=== PATIENT | male | born 1965 | race Caucasian/White ===

== ENCOUNTER 2016-07-27 17:04 | Observation (INO) | payer BC ==
[~2016-07-27] VITALS: Ht 193 cm; Wt 137.0 kg
[~2016-07-27 17:04] MED LIST: CELE100 PO; JANU50TA9 PO; MELO15; PRED20 PO
[2016-07-27] MEDS ORDERED: JANU50TA8 PO (17:21)
[2016-07-27] MEDS ORDERED: MELO7.5T4 PO (17:21)
[2016-07-27] MEDS ORDERED: PRAV40TA2 PO (17:21)
[2016-07-27] MEDS ORDERED: VITA500T49 PO (17:25)
[2016-07-27] MEDS ORDERED: NITROGLYCERIN 0.4 MG SL 25 TABS/BTL SL ONE (17:25)
[2016-07-27] MEDS ORDERED: LORA-361 PO (17:25)
[2016-07-27] MEDS: NITROGLYCERIN 0.4 MG SL 25 TABS/BTL SL SCH ×2 (17:27→17:40)
[2016-07-27] MEDS ORDERED: SODIUM CHLORIDE 0.9% FLUSH 5 ML FLUSH IVF PRN ×2 (17:30→20:30)
[2016-07-27] MEDS ORDERED: SODIUM CHLORID 0.9% 500 ML INJ 500 ML IV ONE (17:30)
[2016-07-27] MEDS ORDERED: ASPIRIN 81 MG CHEW TAB PO ONE (17:30)
[2016-07-27 18:02] LABS: AUTOMATED NEUTROPHIL # 5.1 TH/MM3 (1.8-7.7); BASOPHIL # 0.1 TH/MM3 (0-0.2); BASOPHIL % 1.1 % (0.0-2.0); EOSINOPHIL # 0.1 TH/MM3 (0-0.4); EOSINOPHIL % 1.6 % (0.0-4.0); HEMATOCRIT 46.8 % (39.0-51.0); HEMO FLAGS DIFF FINAL; LYMPH % 20.1 % (9.0-44.0); LYMPHOCYTE # 1.6 TH/MM3 (1.0-4.8); MEAN CELL VOLUME 95.7 FL (80.0-100.0); MEAN CORPUSCULAR HEMOGLOBIN 32.6 PG (27.0-34.0); MEAN CORPUSCULAR HGB CONC 34.1 % (32.0-36.0); MONO % 13.9 % (0.0-8.0); NEUT % 63.3 % (16.0-70.0); PLATELET COUNT 310 TH/MM3 (150-450); RED BLOOD COUNT 4.89 MIL/MM3 (4.50-5.90); RED CELL DISTRIBUTION WIDTH 13.3 % (11.6-17.2)
--- NOTE | 2016-07-27 18:04 | RADRPT ---
EXAM DATE/TIME: 07/27/2016 17:28 [facility] COMPARISON: No previous studies available for comparison. INDICATIONS : Shortness of breath and chest pain. MEDICAL HISTORY : None. SURGICAL HISTORY : None. ENCOUNTER: Initial ACUITY: 1 day PAIN SCORE: 6/10 LOCATION: Bilateral chest FINDINGS: No infiltrate, effusion or pneumothorax demonstrated. Basilar interstitium slightly prominent. There is mild cardiomegaly. CONCLUSION: Trace failure possible. No confluent consolidation. Raulito Lopez MD on July 27, 2016 at 18:02 Board Certified Radiologist. This report was verified electronically.
[2016-07-27 18:12] LABS: APTT (PATIENT) 25.5 SEC (24.3-30.1); PROTHROMBIN TIME - PATIENT 10.9 SEC (9.8-11.6)
[2016-07-27 18:17] VITALS: BP 149/90; PULSE 86; RESP 22; TEMP 97.8; O2SAT 97
[2016-07-27 18:21] VITALS: O2SAT 97
[2016-07-27 18:26] VITALS: BP 106/59; PULSE 87; RESP 18; O2SAT 95
[2016-07-27 18:54] LABS: ALT (GPT) 52 U/L (12-78); ANION GAP 14 MEQ/L (5-15); AST (GOT) 29 U/L (15-37); BICARBONATE 23.1 MEQ/L (21.0-32.0); BLOOD UREA NITROGEN 12 MG/DL (7-18); CHLORIDE 101 MEQ/L (98-107); GLOMERULAR FILTRATION RATE 80 ML/MIN (>89); MAGNESIUM 1.7 MG/DL (1.5-2.5); SODIUM (NA) 138 MEQ/L (136-145)
[2016-07-27 18:58] LABS: ALKALINE PHOSPHATASE 67 U/L (45-117); CREATINE KINASE 145 U/L (39-308); TOTAL BILIRUBIN ADULT 0.8 MG/DL (0.2-1.0)
[2016-07-27 19:11] LABS: CKMB 1.9 NG/ML (0.5-3.6)
--- NOTE | 2016-07-27 19:14 | PD ---
HPI Chief Complaint: Chest Pain Time Seen by Provider: 17:22 Travel History International Travel<30 days: No Contact w/Intl Traveler<30days: No Traveled to known affect area: No History of Present Illness HPI Patient is a 50 -year-old male with history of diabetes, hyperlipidemia, hypertension who presents to the emergency room with complaints of chest pain. Patient reports that he has been having increased pressure to his chest for the past few days. Patient reports that he thought that his symptoms were secondary to allergies and he did take allergy pills with no relief of symptoms. Patient reports that today, he had increased pain to his substernal, reports that he has been feeling short of breath and has been feeling diaphoretic, that he felt some tingling in his left arm and jaw, reports concerns that his symptoms may be cardiac in nature and not allergic in nature so patient came to the emergency room for evaluation. Patient with no history of coronary artery disease in the past, denies history of OR in the past. PFSH Past Medical History Cardiovascular Problems: Yes High Cholesterol: Yes Diabetes: Yes Patient Takes Glucophage: No Diminished Hearing: No Hypertension: Yes Kidney Stones: Yes (5 YEARS AGO WITH REMOVAL OF STONES ) Musculoskeletal: Yes (SCIATICA) Respiratory: Yes (SLEEP APNEA) Sleep Apnea: Yes Tetanus Vaccination: Unknown Social History Alcohol Use: Yes (BEER, OCCAS. A COUPLE TIMES A WEEK) Tobacco Use: No Substance Use: No Allergies-Medications (Allergen,Severity, Reaction): Coded Allergies: Tamiflu (Verified Allergy, Severe, 07/27/16) Reported Meds & Prescriptions Reported Meds & Active Scripts Active Reported Vitamin B12 (Cyanocobalamin) 500 Mcg Tab 500 Mcg PO DAILY Claritin (Loratadine) 10 Mg Tab 10 Mg PO DAILY Janumet (Sitagliptin-Metformin) 50-1,000 Mg Tab 1 Tab PO BID Pravastatin 40 Mg Tab 40 Mg PO DAILY Meloxicam 7.5 Mg Tab 7.5 Mg PO DAILY Review of Systems General / Constitutional: No: Fever Eyes: No: Visual changes HENT: No: Headaches Cardiovascular: Positive: Chest Pain or Discomfort, Diaphoresis Respiratory: Positive: Shortness of Breath Gastrointestinal: Positive: Nausea, Vomiting, No: Abdominal Pain Genitourinary: No: Dysuria Musculoskeletal: No: Pain Skin: No Rash Neurologic: No: Weakness Psychiatric: No: Depression Endocrine: No: Polydipsia Hematologic/Lymphatic: No: Easy Bruising Physical Exam Narrative GENERAL: Moderate distress SKIN: Warm and dry. HEAD: Atraumatic. Normocephalic. EYES: Pupils equal and round. No scleral icterus. No injection or drainage. ENT: No nasal bleeding or discharge. Mucous membranes pink and moist. NECK: Trachea midline. No JVD. CARDIOVASCULAR: Regular rate and rhythm. No murmur appreciated. Patient diaphoretic on exam RESPIRATORY: No accessory muscle use. Clear to auscultation. Breath sounds equal bilaterally. GASTROINTESTINAL: Abdomen soft, non-tender, nondistended. Hepatic and splenic margins not palpable. MUSCULOSKELETAL: No obvious deformities. No clubbing. No cyanosis. No edema. NEUROLOGICAL: Awake and alert. No obvious cranial nerve deficits. Motor grossly within normal limits. Normal speech. PSYCHIATRIC: Appropriate mood and affect; insight and judgment normal. Data Data Last Documented VS Vital Signs Date Time Temp Pulse Resp B/P Pulse Ox O2 Delivery O2 Flow Rate FiO2 07/27/16 18:26 87 18 106/59 95 Room Air 07/27/16 18:17 97.8 Orders B-Type Natriuretic Peptide (07/27/16 17:22) Ckmb (Isoenzyme) Profile (07/27/16 17:22) Complete Blood Count With Diff (07/27/16 17:22) Comprehensive Metabolic Panel (07/27/16 17:22) Magnesium (Mg) (07/27/16 17:22) Prothrombin Time / Inr (Pt) (07/27/16 17:22) Act Partial Throm Time (Ptt) (07/27/16 17:22) Troponin I (07/27/16 17:22) Lipase (07/27/16 17:22) Chest, Single Ap (07/27/16 17:22) Ecg Monitoring (07/27/16 17:22) Iv Access Insert/Monitor (07/27/16 17:22) Oximetry (07/27/16 17:22) Aspirin Chew (Aspirin Chew) (07/27/16 17:30) Sodium Chloride 0.9% Flush (Ns Flush) (07/27/16 17:30) Nitroglycerin Sl (Nitrostat Sl) (07/27/16 17:30) Sodium Chlorid 0.9% 500 Ml Inj (Ns 500 M (07/27/16 17:30) Nitroglycerin Sl (Nitrostat Sl) (07/27/16 17:25) Electrocardiogram (07/27/16 17:10) CKMB (07/27/16 17:37) CKMB% (07/27/16 17:37) Labs Laboratory Tests Test 07/27/16 17:37 White Blood Count 8.0 TH/MM3 Red Blood Count 4.89 MIL/MM3 Hemoglobin 16.0 GM/DL Hematocrit 46.8 % Mean Corpuscular Volume 95.7 FL Mean Corpuscular Hemoglobin 32.6 PG Mean Corpuscular Hemoglobin 34.1 % Concent Red Cell Distribution Width 13.3 % Platelet Count 310 TH/MM3 Mean Platelet Volume 7.7 FL Neutrophils (%) (Auto) 63.3 % Lymphocytes (%) (Auto) 20.1 % Monocytes (%) (Auto) 13.9 % Eosinophils (%) (Auto) 1.6 % Basophils (%) (Auto) 1.1 % Neutrophils # (Auto) 5.1 TH/MM3 Lymphocytes # (Auto) 1.6 TH/MM3 Monocytes # (Auto) 1.1 TH/MM3 Eosinophils # (Auto) 0.1 TH/MM3 Basophils # (Auto) 0.1 TH/MM3 CBC Comment DIFF FINAL Differential Comment Prothrombin Time 10.9 SEC Prothromb Time International 1.0 RATIO Ratio Activated Partial 25.5 SEC Thromboplast Time Sodium Level 138 MEQ/L Potassium Level 4.0 MEQ/L Chloride Level 101 MEQ/L Carbon Dioxide Level 23.1 MEQ/L Anion Gap 14 MEQ/L Blood Urea Nitrogen 12 MG/DL Creatinine 0.98 MG/DL Estimat Glomerular Filtration 80 ML/MIN Rate Random Glucose 180 MG/DL Calcium Level 9.5 MG/DL Magnesium Level 1.7 MG/DL Total Bilirubin 0.8 MG/DL Aspartate Amino Transf 29 U/L (AST/SGOT) Alanine Aminotransferase 52 U/L (ALT/SGPT) Alkaline Phosphatase 67 U/L Total Creatine Kinase 145 U/L Troponin I 0.04 NG/ML B-Type Natriuretic Peptide 318 PG/ML Total Protein 7.8 GM/DL Albumin 4.3 GM/DL Lipase 203 U/L MDM Medical Decision Making Medical Screen Exam Complete: Yes Emergency Medical Condition: Yes Interpretation(s) EKG #1 at 1644 normal sinus rhythm at 82 beats for minute, QT/QTc 409/447, no acute ST-T wave changes EKG #2 at 1710: Normal sinus rhythm at 90 bpm, QT/QTc 361/409, no acute ST or T- wave changes, PVCs Vital Signs Date Time Temp Pulse Resp B/P Pulse Ox O2 Delivery O2 Flow Rate FiO2 07/27/16 18:26 87 18 106/59 95 Room Air 07/27/16 18:21 97 Room Air 07/27/16 18:17 97.8 86 22 149/90 97 Laboratory Tests Test 07/27/16 17:37 White Blood Count 8.0 TH/MM3 (4.0-11.0) Red Blood Count 4.89 MIL/MM3 (4.50-5.90) Hemoglobin 16.0 GM/DL (13.0-17.0) Hematocrit 46.8 % (39.0-51.0) Mean Corpuscular Volume 95.7 FL (80.0-100.0) Mean Corpuscular Hemoglobin 32.6 PG (27.0-34.0) Mean Corpuscular Hemoglobin 34.1 % Concent (32.0-36.0) Red Cell Distribution Width 13.3 % (11.6-17.2) Platelet Count 310 TH/MM3 (150-450) Mean Platelet Volume 7.7 FL (7.0-11.0) Neutrophils (%) (Auto) 63.3 % (16.0-70.0) Lymphocytes (%) (Auto) 20.1 % (9.0-44.0) Monocytes (%) (Auto) 13.9 % (0.0-8.0) Eosinophils (%) (Auto) 1.6 % (0.0-4.0) Basophils (%) (Auto) 1.1 % (0.0-2.0) Neutrophils # (Auto) 5.1 TH/MM3 (1.8-7.7) Lymphocytes # (Auto) 1.6 TH/MM3 (1.0-4.8) Monocytes # (Auto) 1.1 TH/MM3 (0-0.9) Eosinophils # (Auto) 0.1 TH/MM3 (0-0.4) Basophils # (Auto) 0.1 TH/MM3 (0-0.2) CBC Comment DIFF FINAL Differential Comment Prothrombin Time 10.9 SEC (9.8-11.6) Prothromb Time International 1.0 RATIO Ratio Activated Partial 25.5 SEC Thromboplast Time (24.3-30.1) Sodium Level 138 MEQ/L (136-145) Potassium Level 4.0 MEQ/L (3.5-5.1) Chloride Level 101 MEQ/L (98-107) Carbon Dioxide Level 23.1 MEQ/L (21.0-32.0) Anion Gap 14 MEQ/L (5-15) Blood Urea Nitrogen 12 MG/DL (7-18) Creatinine 0.98 MG/DL (0.60-1.30) Estimat Glomerular Filtration 80 ML/MIN (>89) Rate Random Glucose 180 MG/DL (74-106) Calcium Level 9.5 MG/DL (8.5-10.1) Magnesium Level 1.7 MG/DL (1.5-2.5) Total Bilirubin 0.8 MG/DL (0.2-1.0) Aspartate Amino Transf 29 U/L (15-37) (AST/SGOT) Alanine Aminotransferase 52 U/L (12-78) (ALT/SGPT) Alkaline Phosphatase 67 U/L (45-117) Total Creatine Kinase 145 U/L (39-308) Troponin I 0.04 NG/ML (0.02-0.05) B-Type Natriuretic Peptide 318 PG/ML (0-100) Total Protein 7.8 GM/DL (6.4-8.2) Albumin 4.3 GM/DL (3.4-5.0) Lipase 203 U/L (73-393) Last Impressions Chest X-Ray 07/27/16 1722 Signed Impressions: Service Date/Time: Wednesday, July 27, 2016 17:28 - CONCLUSION: Trace failure possible. No confluent consolidation. Raulito Lopez MD Differential Diagnosis ACS, arrhythmia, electrolyte abnormality, PE, pneumothorax Narrative Course Patient is a 50-year-old male who presents to emergency room with complaints of chest pain. Patient reports that chest pain has been intermittent for the past few days, reports that chest pain has been constant since this morning. Patient reports that chest pain is substernal in nature, reports that he feels like a "pressure to my chest" associated nausea, vomiting and diaphoresis. Patient reports that he was concerned today as symptoms were now going to his jaw and he felt increasingly to his left arm. Patient was having chest pain and was diaphoretic upon arrival to emergency room. EKG obtained, patient was placed on a track fitter. Patient was given one sublingual nitroglycerin and had complete resolution of his chest pain. Labs as well as cardiac enzymes ordered. Troponin is 0.04, BNP 318 Plan to admit patient to chest pain observation unit for serial troponins and for cardiac monitoring. Patient agreeable to plan of care Diagnosis Primary Impression: Chest pain Qualified Code: R07.9 - Chest pain, unspecified type Admitting Information Admitting Physician Requests: Leonila Avila DO Jul 27, 2016 19:14
[2016-07-27 19:52] VITALS: BP 118/62; PULSE 84; RESP 14; O2SAT 97
[2016-07-27] MEDS: D5-1/2 NS + KCL 20 MEQ INJ 1,000 ML IV SCH (20:57)
[2016-07-27] MEDS ORDERED: SODIUM CHLORIDE 0.9% FLUSH 5 ML FLUSH IVF SCH (21:00)
[2016-07-27 21:51] LABS: CREATINE KINASE 138 U/L (39-308)
[2016-07-27 22:00] VITALS: BP 136/68; PULSE 82; RESP 16; O2SAT 100
[2016-07-27 22:04] LABS: CKMB 1.4 NG/ML (0.5-3.6)
[2016-07-28 00:36] LABS: CREATINE KINASE 110 U/L (39-308)
[2016-07-28 00:49] LABS: CKMB 1.6 NG/ML (0.5-3.6)
[2016-07-28 01:57] VITALS: BP 144/77; PULSE 78; RESP 12; O2SAT 98
[2016-07-28 03:55] VITALS: BP 138/70; PULSE 66; RESP 12; O2SAT 99
[2016-07-28 06:16] VITALS: BP 134/78; PULSE 68; RESP 18; O2SAT 100
[2016-07-28] MEDS: NITROGLYCERIN 0.4 MG SL 25 TABS/BTL SL SCH (07:00)
[2016-07-28] MEDS: D5-1/2 NS + KCL 20 MEQ INJ 1,000 ML IV SCH (07:15)
[2016-07-28 07:19] VITALS: BP_SYST 141; BP_SYST 142; BP_DIAS 81; BP_DIAS 82; PULSE 78; RESP 17; TEMP 97; TEMP 97.8; O2SAT 98; O2SAT 99
[2016-07-28] MEDS ORDERED: NITROGLYCERIN 0.4 MG SL 25 TABS/BTL SL PRN (09:00)
[2016-07-28] MEDS ORDERED: SODIUM CHLORIDE 0.9% FLUSH 5 ML FLUSH IVF PRN (09:00)
[2016-07-28] MEDS ORDERED: ACETAMINOPHEN 500 MG CPLT PO PRN (09:00)
[2016-07-28] MEDS ORDERED: ONDANSETRON HCL 4 MG/2 ML VIAL IV PRN (09:00)
[2016-07-28] MEDS ORDERED: ASPIRIN 325 MG TAB PO SCH (09:00)
[2016-07-28] MEDS ORDERED: SODIUM CHLORIDE 0.9% FLUSH 5 ML FLUSH IVF SCH (09:00)
[2016-07-28 09:18] VITALS: BP 140/81; PULSE 76; RESP 16; O2SAT 99
[2016-07-28] MEDS ORDERED: MELOXICAM 7.5 MG TAB PO SCH (10:45)
[2016-07-28] MEDS ORDERED: NON-FORMULARY DRUG (Sitagliptin-Metformin (Janumet) 1 TAB) PO SCH (10:45)
[2016-07-28] MEDS ORDERED: LORATADINE 10 MG TAB PO SCH (10:45)
[2016-07-28] MEDS ORDERED: metFORMIN HCL 500 MG TAB PO SCH (11:00)
[2016-07-28] MEDS ORDERED: REGADENOSON INJ 0.4 MG/5 ML SYR ONE (11:42)
--- NOTE | 2016-07-28 14:09 | RADRPT ---
EXAM DATE/TIME: 07/28/2016 10:59 [facility] COMPARISON: No previous studies available for comparison. INDICATIONS : Mid chest pain radiating to the left arm and jaw for two days. Angina. DOSE: 34.8 mCi Tc99m Myoview at stress. 11.0 mCi Tc99m Myoview at rest. 0.4 mg Lexiscan STRESS SYMPTOMS: Shortness of breath. EJECTION FRACTION: 42% MEDICAL HISTORY : Diabetes mellitus type 2. Hypertension. SURGICAL HISTORY : None. ENCOUNTER: Initial ACUITY: 2 days PAIN SCALE: 7/10 LOCATION: Midsternal chest TECHNIQUE: The patient underwent pharmacologic stress with infusion of prescribed dose. Continuous ECG tracing was monitored during stress. Gated SPECT imaging was performed after stress and conventional SPECT i maging was performed at rest. The examination was performed on a SPECT/CT scanner, both attenuation and non-corrected datasets were reviewed. FINDINGS: DISTRIBUTION: The maximum perfused segment at stress is in the anterior wall. PERFUSION STUDY: The pattern of perfusion reveals a fixed perfusion defect in the inferior wall near the apex. GATED STUDY: Left ventricular chamber appears dilated with a decreased ejection fraction of 42%.. CONCLUSION: 1. No significant reversibility to suggest ischemia. 2. 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 3. Global hypokinesis with ejection fraction 42%. RISK CATEGORY: Low (<1% Annual Mortality Rate) Morgan Johnson MD on July 28, 2016 at 14:04 Board Certified Radiologist. This report was verified electronically.
--- NOTE | 2016-07-28 14:38 | TR ---
Date Performed: 07/28/2016 Time Performed: 11:34:16 DOCTOR: Ramy Snell DRUG LIST: CLINICAL HISTORY: REASON FOR TEST: Angina REASON FOR ENDING: OBSERVATION: CONCLUSION: Lexiscan stress test was performed under standard four minute protocol. Radionuclid e was injected one minute prior to ending the test. No electrocardiographic abormalities were present to suggest ischemia. Nuclear imaging and interpretation are pending. COMMENTS:
--- NOTE | 2016-07-28 14:40 | HHI.DCPOC ---
Discharge Care Plan Diagnosis: (1) Atypical chest pain (2) Type 2 diabetes mellitus (3) Obesity (4) Hypertension (5) Hyperlipidemia Goals to Promote Your Health * To prevent worsening of your condition and complications * To maintain your health at the optimal level Directions to Meet Your Goals Take your medications as prescribed Follow your dietary instruction Follow activity as directed Keep your appointments as scheduled Take your immunizations and boosters as scheduled If your symptoms worsen call your PCP, if no PCP go to Urgent Care Center or Emergency Room Smoking is Dangerous to Your Health. Avoid second hand smoke Call the 24-hour hour crisis hotline for domestic abuse at Leatha Mccurdy Jul 28, 2016 14:40
--- NOTE | 2016-07-28 14:41 | EKG ---
Date Performed: 07/27/2016 Time Performed: 22:51:47 PTAGE: 50 years EKG: Sinus rhythm WITH OCCASIONAL VENTRICULAR PREMATURE COMPLEXES MARKED LEFT AXIS DEVIATION MODERATE INTRAVENTRICULAR CONDUCTION DELAY ABNORMAL ECG PREVIOUS TRACING : 07/27/2016 19.40 Since previous tracing, no significant change noted DOCTOR: Ramy Snell Interpretating Date/Time 07/28/2016 14:39:33
--- NOTE | 2016-07-28 14:42 | EKG ---
Date Performed: 07/27/2016 Time Performed: 19:40:55 PTAGE: 50 years EKG: Sinus rhythm WITH OCCASIONAL VENTRICULAR PREMATURE COMPLEXES MARKED LEFT AXIS DEVIATION MODERATE INTRAVENTRICULAR CONDUCTION DELAY ABNORMAL ECG PREVIOUS TRACING : 07/27/2016 17.10 Since previous tracing, no significant change noted DOCTOR: Ramy Snell Interpretating Date/Time 07/28/2016 14:40:51
--- NOTE | 2016-07-28 14:42 | EKG ---
Date Performed: 07/27/2016 Time Performed: 17:10:24 PTAGE: 50 years EKG: Sinus rhythm WITH OCCASIONAL VENTRICULAR PREMATURE COMPLEXES MARKED LEFT AXIS DEVIATION MINIMAL VOLTAGE CRITERIA FOR LVH, CONSIDER NORMAL VARIANT ABNORMAL ECG PREVIOUS TRACING : 08/29/2006 14.58 Since previous tracing, no significant change noted DOCTOR: Ramy Snell Interpretating Date/Time 07/28/2016 14:41:33
--- NOTE | 2016-07-28 14:43 | EKG ---
Date Performed: 07/27/2016 Time Performed: 16:44:49 PTAGE: 50 years EKG: Sinus rhythm MARKED LEFT AXIS DEVIATION POSSIBLE LEFT VENTRICULAR HYPERTROPHY ABNORMAL ECG PREVIOUS TRACING : 08/29/2006 14.58 Since previous tracing, no significant change noted DOCTOR: Ramy Snell Interpretating Date/Time 07/28/2016 14:41:55
--- NOTE | 2016-07-28 14:46 | EKG ---
Date Performed: 07/28/2016 Time Performed: 06:30:18 PTAGE: 50 years EKG: Sinus rhythm MARKED LEFT AXIS DEVIATION ABNORMAL ECG PREVIOUS TRACING : 07/27/2016 22.51 Since previous tracing, no significant change noted DOCTOR: Ramy Snell Interpretating Date/Time 07/28/2016 14:44:37
--- NOTE | 2016-07-28 16:01 | HHI.HP ---
[facility] Primary Care Physician Jona Carpenter M.D. Chief Complaint Chest pain History of Present Illness 50-year-old patient with known diabetes, hypertension, and hyperlipidemia presents to the emergency room for further evaluation of chest discomfort and shortness of breath since Monday. Monday evening he woke up "feeling like I could not catch my breath." Was only able to sleep 30 minutes at a time before becoming short of breath again. This also occurred Monday evening. 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 On Monday was seen and evaluated by this physician, Dr. Glasgow. He was encouraged at that time to be further evaluated in ER. He instead called his primary care provider. His PCP is very familiar with him and felt his allergies could be contributing to his chest discomfort and shortness of breath. PCP instructed to take Claritin [id number] daily, which she started that day. Yesterday , Monday, while at work he developed similar symptoms along with chest pain with radiation to left arm and jaw. Yesterday's onset of chest pain/tightness/ pressure 10 AM yesterday while at work. No exertional component. Location substernal. Pain described as constant and dull. Radiation to left arm and left jaw. Described hand as tingling. Duration was 7+ hours. No associated symptoms. No known precipitating or relieving factors. Currently he has "very little chest pressure." He has not had chest pain in the past. Review of Systems Endocrine: DENIES: Weight gain, Weight loss, Thyroid disease General: No fatigue,weakness, fever, chills, recent illness, recent travel, change in appetite HEENT: No SAMUELS, no vision changes, no nasal congestion or drainage, no dysphasia CV: As stated above. No palpitations, intermittent leg pain, or dizziness RESP: No current SOB, no exertional SOB, cough, wheeze, hemoptysis, asthma. Reports sleep apnea however does not use CPAP as it is uncomfortable. Had an old rescue inhaler, used during shortness of breath episodes without relief. GI: No nausea, vomiting, bowel changes, diarrhea, constipation, pain, distention , melena, blood in the stool. No change in appetite, no unintentional weight gain or weight loss : No dysuria, urgency, frequency. History of kidney stones. EXT: No lower leg edema, no paraesthesias MS: No discomfort or change in ROM NEURO: No change in memory, dizziness, difficulty with balance, LOC, motor/ sensory deficits PSYCH: No anxiety, depression SKIN: No rashes, no concerning lesions Past Family Social History Allergies: Coded Allergies: Tamiflu (Verified Allergy, Severe, 07/27/16) Past Medical History Diabetes, hypertension, hyperlipidemia, kidney stones, sleep apnea Past Surgical History None Reported Medications Reported Meds & Active Scripts Active Reported Vitamin B12 (Cyanocobalamin) 500 Mcg Tab 500 Mcg PO DAILY Claritin (Loratadine) 10 Mg Tab 10 Mg PO DAILY Janumet (Sitagliptin-Metformin) 50-1,000 Mg Tab 1 Tab PO BID Pravastatin 40 Mg Tab 40 Mg PO DAILY Meloxicam 7.5 Mg Tab 7.5 Mg PO DAILY Losartan (dose unknown) takes daily Family History Noncontributory for early onset cardiovascular disease. Father had first cardiac stent placed in his 60s. Mother of colon cancer. Social History . Works at [email or web address] and [employer]. Lifelong nonsmoker. Endorses secondhand smoke his whole life. Endorses alcohol use on a regular basis. No illegal drugs. Sedentary. Known diabetes, hyperlipidemia, and hypertension. Past cardiac testing Exercise stress test 10 years agounremarkable. 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 Physical Exam Vital Signs Vital Signs Date Time Temp Pulse Resp B/P Pulse Ox O2 Delivery O2 Flow Rate FiO2 07/28/16 09:18 76 16 140/81 99 Room Air 07/28/16 07:19 78 17 99 Room Air 07/28/16 07:19 97.8 78 17 142/81 98 Room Air 07/28/16 07:19 97.8 78 17 141/82 99 Room Air 07/28/16 06:16 68 18 134/78 100 Room Air 07/28/16 03:55 66 12 138/70 99 Room Air 07/28/16 01:57 78 12 144/77 98 Room Air 07/27/16 22:00 82 16 136/68 100 Room Air 07/27/16 19:52 84 14 118/62 97 Room Air 07/27/16 18:26 87 18 106/59 95 Room Air 07/27/16 18:21 97 Room Air 07/27/16 18:17 97.8 86 22 149/90 97 Physical Exam GENERAL: Alert WN, WD, NAD, pleasant, obese male HEAD: NC, AT EYES: Sclera clear, conjunctiva without injection, pupils equal and round NECK: Supple, no masses, trachea midline CV: RRR, without murmur, rub, gallop, no JVD, S1-S2 no S3-S4. No carotid or femoral bruits RESP: Clear lungs throughout bilateral, no crackles, wheeze, rhonchi, symmetrical chest rise, nonlabored, able to speak in full sentences ABD: Soft, obese, NT, ND, no masses, positive bowel tones EXT: Pulses +24, no dependent edema MS: Normal tone 4 extremities, nontender, no obvious deformities, full range of motion NEURO: CN II through CN XII grossly intact, motor strength 5/5, gait WNL PSYCH: A+O 3, pleasant affect, appropriate speech, appropriate mood and affect , insight and judgment SKIN: Normal turgor, normal texture, no lesions, no rashes, brisk cap refill, even hair distribution Laboratory Laboratory Tests Test 07/27/16 07/27/16 07/28/16 17:37 20:50 00:02 White Blood Count 8.0 Red Blood Count 4.89 Hemoglobin 16.0 Hematocrit 46.8 Mean Corpuscular Volume 95.7 Mean Corpuscular Hemoglobin 32.6 Mean Corpuscular Hemoglobin 34.1 Concent Red Cell Distribution Width 13.3 Platelet Count 310 Mean Platelet Volume 7.7 Neutrophils (%) (Auto) 63.3 Lymphocytes (%) (Auto) 20.1 Monocytes (%) (Auto) 13.9 Eosinophils (%) (Auto) 1.6 Basophils (%) (Auto) 1.1 Neutrophils # (Auto) 5.1 Lymphocytes # (Auto) 1.6 Monocytes # (Auto) 1.1 Eosinophils # (Auto) 0.1 Basophils # (Auto) 0.1 CBC Comment DIFF FINAL Differential Comment Prothrombin Time 10.9 Prothromb Time International 1.0 Ratio Activated Partial 25.5 Thromboplast Time Sodium Level 138 Potassium Level 4.0 Chloride Level 101 Carbon Dioxide Level 23.1 Anion Gap 14 Blood Urea Nitrogen 12 Creatinine 0.98 Estimat Glomerular Filtration 80 Rate Random Glucose 180 Calcium Level 9.5 Magnesium Level 1.7 Total Bilirubin 0.8 Aspartate Amino Transf 29 (AST/SGOT) Alanine Aminotransferase 52 (ALT/SGPT) Alkaline Phosphatase 67 Total Creatine Kinase 145 138 110 Creatine Kinase MB 1.9 1.4 1.6 Troponin I 0.04 0.05 0.05 B-Type Natriuretic Peptide 318 Total Protein 7.8 Albumin 4.3 Lipase 203 Result Diagram: 07/27/16173607/27/161736 Imaging Last Impressions Myocardial Perfusion Scan Nuc Med 07/28/16 0000 Signed Impressions: Service Date/Time: July 10:59 - CONCLUSION: 1. No significant reversibility to suggest ischemia. 2. 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 3. Global hypokinesis with ejection fraction 42%%. RISK CATEGORY: Low (<1%% Annual Mortality Rate) Morgan Johnson MD Chest X-Ray 07/27/161721 Signed Impressions: Service Date/Time: Wednesday, July 27, 2016 17:28 - CONCLUSION: Trace failure possible. No confluent consolidation. Raulito Lopez MD Course EKGs Normal sinus rhythm, occasional PVC, no ST or T-segment changes Assessment and Plan Assessment and Plan #1 chest painadmitted to chest pain center. Ruled out with 3 sets of EKGs, cardiac enzymes, and monitored throughout evening. Was seen and evaluated by Dr. Ramy Snell. Completed a chemical stress test which was negative for ischemia, possible old infarct at apex, and an EF of 42%. Encouraged to discuss with PCP referral to cardiology for further workup and echocardiogram. Discussed the importance of weight loss, tight blood pressure control, continuing statins, and tight blood sugar control. Instructed PCP and or cardiology may add medication to his current regimen, no changes at this time. #2 diabetescontinue Janumet #3 hypertensioncontinue to monitor. Continue losartan. #4 hyperlipidemiacontinue pravastatin #5 sleep apneainstructed to discuss with PCP other options for current CPAP mask #6 ETOH useinstructed on current guidelines regarding alcohol use. Drink no more than 2 alcoholic drinks a day. Educated limiting alcohol use will improve his diabetes, hypertension, and overall heart function. Leatha Mccurdy Jul 28, 2016 16:01
[2016-07-28] MEDS ORDERED: PRAVASTATIN SOD 40 MG TAB PO SCH (21:00)
== END 2016-07-28 15:23 | disposition home or self-care (01) ==
LOC: NEPA 17:04 → NEDA 19:15 → NEDH 23:15 → NEPFCDU 07-28 10:11
PROVIDERS: ADMIT Internal Medicine Cardiovascular Disease; ATTEND Internal Medicine Cardiovascular Disease
DX: R07.89 Other chest pain (principal); E11.9 Type 2 diabetes mellitus without complications; I10 Essential (primary) hypertension; E78.5 Hyperlipidemia, unspecified; G47.30 Sleep apnea, unspecified; F10.10 Alcohol abuse, uncomplicated; E66.9 Obesity, unspecified; Z68.36 Body mass index [BMI] 36.0-36.9, adult; M54.30 Sciatica, unspecified side; E78.00 Pure hypercholesterolemia, unspecified; Z87.442 Personal history of urinary calculi; Z88.8 Allergy status to other drugs, medicaments and biological substances
CPT/HCPCS: 71010; 78452; 80053; 82550; 82552; 83690; 83735; 83880; 84484; 85025; 85610; 85730; 93005; 93017; 96360; 99285; A9502; G0378; J2785; J3480; J7040